=== PATIENT | male | born 1945 | race Caucasian/White ===

== ENCOUNTER 2016-05-09 13:15 | Inpatient (IN) ==
--- NOTE | 2016-05-08 21:18 | Discharge Summary ---
<Gretel Strong - Last Filed: 05/09/16 09:51> Date of Encounter: 05/09/16 - Discharge Diagnosis (1) Arthritis of right hip Priority: Primary Status: Acute (2) HTN (hypertension) Priority: Secondary Status: Chronic Qualifiers: Hypertension type: essential hypertension Qualified Code(s): I10 - Essential (primary) hypertension (3) Obesity Priority: Secondary Status: Chronic Qualifiers: Obesity type: unspecified obesity type Obesity severity: unspecified obesity severity Qualified Code(s): E66.9 - Obesity, unspecified - Discharge Medications Home Medications: Aspirin Enteric Coated [Aspirin EC] 325 mg PO DAILY #21 tablet. 05/08/16 [Rx] OxyCODONE Immed Rel [Roxicodone 5 MG] 5 - 10 mg PO Q6HR PRN #40 tablet 05/08/16 [Rx] Aspirin 81 mg PO DAILY 05/09/16 [History] Magnesium Oxide [Magnesium] 400 mg PO HS 05/09/16 [History] Multivitamin [Multi-Day Vitamins] 1 each PO DAILY 05/09/16 [History] Nebivolol HCl [Bystolic] 10 mg PO DAILY 05/09/16 [History] Potassium Chloride 20 meq PO BID 05/09/16 [History] Simvastatin [Zocor] 40 mg PO DAILY 05/09/16 [History] Spironolactone [Aldactone] 25 mg PO BID 05/09/16 [History] Allergies/Adverse Reactions: Allergies No Known Allergies Allergy (Verified 05/09/16 14:06) Primary care physician: Ariella Salguero MD - Patient Status Disposition: Home, Self-Care Condition: Good - Discharge Instructions Follow Up With: Louis Cole MD [Partnered Physician] - 06/07/16 9:30 am Gretel Strong PAC [Physician School Secretary] - 05/18/16 10:30 am Ariella Salguero MD [Primary Care Provider] - - Hospital Course Hospital course: Mr. Ring is a 70 year old male - Time Spent with Patient Total time spent providing and/or coordinating discharge services: <Louis Cole - Last Filed: 05/11/16 07:46> Date of Encounter: 05/11/16 Time of Encounter: 07:46 - Discharge Diagnosis (1) Arthritis of right hip Status: Acute (2) HTN (hypertension) Status: Chronic Qualifiers: Hypertension type: essential hypertension Qualified Code(s): I10 - Essential (primary) hypertension (3) Obesity Status: Chronic Qualifiers: Obesity type: unspecified obesity type Obesity severity: unspecified obesity severity Qualified Code(s): E66.9 - Obesity, unspecified Primary care physician: Ariella Salguero MD - Patient Status Functional capacity at discharge: uses cane/walker Overall status at discharge: patient is progressing back to baseline - Hospital Course Hospital course: Mr. Ring is a 70 year old male The patient had an uneventful postoperative course. They received antibiotics and physical therapy and were discharged in stable condition. There will follow -up in the office in 2 weeks. Aspirin DVT prophylaxis - Time Spent with Patient Total time spent providing and/or coordinating discharge services:
[2016-05-09] MEDS ORDERED: CeFAZolin Pre 2,000 MG/100 ML 2,000 MG/100 ML BAG IVPB ONE (13:38)
[2016-05-09] MEDS: Ringers Solution, Lactated 1,000 ML IVC SCH ×2 (13:56→17:57)
[2016-05-09] MEDS ORDERED: Famotidine 20 MG/2 ML VIAL IVP ONE (14:44)
--- NOTE | 2016-05-09 15:06 | Anesthesia Evaluation PreOp ---
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 05/08/16 [Rx] OxyCODONE Immed Rel [Roxicodone 5 MG] 5 - 10 mg PO Q6HR PRN #40 tablet 05/08/16 [Rx] Aspirin 81 mg PO DAILY 05/09/16 [History] Magnesium Oxide [Magnesium] 400 mg PO HS 05/09/16 [History] Multivitamin [Multi-Day Vitamins] 1 each PO DAILY 05/09/16 [History] Nebivolol HCl [Bystolic] 10 mg PO DAILY 05/09/16 [History] Potassium Chloride 20 meq PO BID 05/09/16 [History] Simvastatin [Zocor] 40 mg PO DAILY 05/09/16 [History] Spironolactone [Aldactone] 25 mg PO BID 05/09/16 [History] Allergies No Known Allergies Allergy (Verified 05/09/16 14:06) - Meds/Allergy Pre-op Review Medications Reviewed: Yes Allergies Reviewed: Yes Beta Blockers on Current Med List: Yes (Given Bystolic today 1400) Anesthesia Results - Labs Laboratory Tests 05/02/16 05/02/16 10:05 10:05 WBC 9.1 Hgb 15.7 Hct 47.0 Plt Count 129 L Sodium 140 Potassium 4.4 BUN 18 - Imaging EKG: report reviewed (SR frequent PVC) Anesthesia Exam O2 Sat Height 1.75 m Height 1.75 m Height 1.75 m Weight 109.769 kg Weight 109.769 kg Weight 109.769 kg O2 Sat by Pulse Oximetry 95 O2 Sat by Pulse Oximetry 95 Vital Signs Temp Pulse Resp BP Pulse Ox 97.3 F L 79 18 131/80 95 05/09/16 13:36 05/09/16 13:36 05/09/16 13:36 05/09/16 13:36 05/09/16 13:36 Height: 5'10 Weight: 242 lbs NPO (# of Hours): MN - HEENT Pupil (Motor): Pupils equal, EOMI Mallampati: II Teeth: Normal Oral Opening: Greater than 3 - BOOKKEEPING TEACHER LOC: Oriented BOOKKEEPING TEACHER Motor: Normal RUE, Normal LUE, Normal RLE, Normal LLE, Normal Face BOOKKEEPING TEACHER Sensory: Normal: RUE, LUE, RLE, LLE, Face - Cardiac Rhythm: Regular Murmur: None JVD: No Carotid Bruit: No - Pulmonary Breath Sounds: bilateral Clear Respiratory Effort: Symmetrical Anesthesia Assess/Plan ASA Score: 2 Modified [place] Scale for Level of Consciousness: Cooperative, oriented, and tranquil Anesthetic Plan: General Monitoring Plan: Standard Monitors Recovery Plan: PACU (Discussed GA, agrees to proceed)
[2016-05-09] MEDS ORDERED: *HR* Propofol 200 MG/20 ML VIAL IVP ONE (16:04)
[2016-05-09] MEDS ORDERED: *HR* FentaNYL (PF) 100 MCG/2 ML VIAL ONE (16:04)
[2016-05-09] MEDS ORDERED: Lidocaine -MPF 2% 2 ML VIAL ONE (16:04)
[2016-05-09] MEDS ORDERED: Dexamethasone 4 MG/ML VIAL ONE (16:04)
[2016-05-09] MEDS ORDERED: Ondansetron 4 MG/2 ML VIAL ONE (16:04)
[2016-05-09] MEDS ORDERED: *HR* Midazolam HCl 2 MG/2 ML VIAL ONE (16:04)
[2016-05-09] MEDS ORDERED: Lidocaine -MPF 4% 5 ML AMPUL ONE (16:05)
[2016-05-09] MEDS ORDERED: *HR* HYDROmorphone (PF) 1 MG/ML SYRINGE IVP PRN ×3 (16:10→20:26)
--- NOTE | 2016-05-09 17:13 | History & Physical Report ---
Date of Encounter: 05/09/16 Time of Encounter: 17:13 24 Hour HP Update - Instructions Instructions: If the History and Physical is less than 30 days old and was completed prior to A.M. admission and or procedure and has NOT been updated on calendar day of procedure please complete this update prior to performing procedure. - Update Patient reports changes in Medical Condition: No Changes in assessment/condition: No Changes in Medication: No Preop tests/diagnostics Reviewed: Yes Surgery Remains Indicated: Yes Consent for Planned Operative Procedure(s) Verified: Yes - Pre-Operative Checklist Preoperative Checklist Indicated: No Prophylactic Antibiotic Ordered: Yes Is VTE Prophylaxis Indicated?: Yes
[2016-05-09] MEDS ORDERED: *HR* Enoxaparin 30 MG/0.3 ML SYRINGE SQ SCH (18:00)
--- NOTE | 2016-05-09 18:19 | Orthopedic Operative Note ---
Date of procedure: 05/09/16 Pre-op diagnosis: Right hip arthritis Post-op diagnosis: same Procedure: Procedure: Right Total Hip Replacment Estimated blood loss: 200 cc Hardware: Biomet DM Cup: 62 G7 fin cup Femoral size 11 echo full profile lateralized stem Head: +9 head with Hilda Procedural Notes: Grade 4 arthritic changes femoral head acetabular socket Operative procedure: The patient was brought to the operating room and placed on the operating room table. After general anesthesia was administered the patient was placed in the lateral decubitus position with the operative leg up. All pressure points were padded appropriately and the head was stabilized in the neutral position. The operative extremity was prepped and draped in the sterile surgical fashion patient received IV antibiotic prior to skin incision. A standard posterior approach is made to the operative hip, the incision was made through the skin and subcutaneous tissue hemostasis was obtained with Bovie cautery. Using careful sharp dissection the fascia was identified and incised exposing the external rotators. The external rotators were released off the greater trochanter and tagged with #2 FiberWire suture. The capsule was T'd open and the hip was brought into internal rotation. Patient noted to have grade 4 arthritic changes femoral head. The femoral neck cut was made at the appropriate level. An anterior capsulotomy was performed for the anterior retractor. Soft tissues removed from the acetabulum. Patient noted to have grade 4 arthritic changes acetabulum. Acetabulum was first reamed medially, and then reamed in 15 degrees of anteversion and 45 degrees off the horizontal. It was reamed up to the appropriate size 62 The appropriate-sized 6-2 acetabular cup was impacted in place in 15 degrees of anteversion and 45 degrees off the horizontal. This had good fit and fixation. The hip was brought back in to internal rotation and prepared with the hot box checker followed by the canal finder followed by broaching process in 20 degrees anteversion. It was broached up to the appropriate size 11 The femoral implant was impacted in place in 20 degrees of anteversion. Trial reduction found the hip to be stable with a +9 head and Hilda. The trials were removed and the real implants were impacted in place. The hip was reduced, patient had apparent equal leg lengths. The hip had excellent stability with forward flexion to 90 degrees adduction of 30 degrees and internal rotation of 60 degrees. The hip had no shuck. The hips after 2 minutes with a Betadine saline solution. It was irrigated out with 2 L of pulse irrigation. The external rotators were reattached to drill holes in the greater trochanter. Fascia was closed with a running #2 PDS suture. The deep tissue was irrigated and closed deep with #1 PDS suture superficially with 0 PDS suture and skin was closed with Dermabond and skin sveta. The patient was placed in a sterile dressing and abduction pillow. The patient was extubated and transferred to the recovery room in stable condition. Anesthesia: GETA Surgeon: Louis Cole Condition: stable Disposition: PACU
[2016-05-09 19:38] LABS: Hematocrit 41.9 % (37.5-50.1); Hemoglobin 13.9 g/dL (12.9-16.9)
--- NOTE | 2016-05-09 20:01 | Anesthesia Evaluation Post Op ---
Date of Encounter: 05/09/16 Time of Encounter: 19:59 - Vital Signs Vital Signs: Vital Signs/O2 Sat, Most Current Temp Pulse Resp BP Pulse Ox 97.5 F L 69 16 123/89 97 05/09/16 19:44 05/09/16 19:54 05/09/16 19:54 05/09/16 19:54 05/09/16 19:54 - Lungs Lungs: Clear Ascult./Percussion - Airway Airway: Non-obstructed - Mental Status Mental Status: Alert & Oriented, Answers Appropriately - Pain Pain Scale: 4 - Nausea Vomiting Nausea Vomiting: Not Present - Hydration Hydration: NPO, Has not voided - Discharge PostOp Status: Transfer Patient to floor
[2016-05-09] MEDS ORDERED: Acetaminophen 325 MG TABLET PO PRN (20:26)
[2016-05-09] MEDS ORDERED: Sennosides 8.6 MG TABLET PO PRN (20:26)
[2016-05-09] MEDS ORDERED: Temazepam 15 MG CAPSULE PO PRN (20:26)
[2016-05-09] MEDS ORDERED: MOM Conc 10 ML UD.LIQ PO PRN (20:26)
[2016-05-09] MEDS ORDERED: Ringers Solution, Lactated 1,000 ML IVC SCH (20:26)
[2016-05-09] MEDS ORDERED: *HR* OxyCODONE Immed Rel 5 MG TABLET PO PRN (20:26)
[2016-05-09] MEDS ORDERED: Naloxone 0.4 MG/ML INJ IVP PRN (20:26)
[2016-05-09] MEDS ORDERED: Albuterol Neb 1.25 MG/3 ML VIAL IH ONE (20:26)
[2016-05-09] MEDS ORDERED: Ondansetron 4 MG/2 ML VIAL IVP PRN (20:26)
[2016-05-09] MEDS: Ascorbic Acid 500 MG TABLET PO SCH (20:49)
[2016-05-09] MEDS: Spironolactone 25 MG TABLET PO SCH (20:49)
[2016-05-09] MEDS: Magnesium Oxide 400 MG TABLET PO SCH (20:52)
[2016-05-09] MEDS: ceFAZolin 2,000 MG in D5% in Water 100 ML IVPB SCH (23:59)
[2016-05-10] MEDS: *HR* OxyCODONE Immed Rel 5 MG TABLET PO PRN ×2 (00:03→19:56)
[2016-05-10 06:03] LABS: Hematocrit 39.7 % (37.5-50.1); Hemoglobin 13.2 g/dL (12.9-16.9)
[2016-05-10] MEDS: *HR* Enoxaparin 30 MG/0.3 ML SYRINGE SQ SCH ×2 (06:13→17:35)
[2016-05-10 06:19] LABS: BUN/Creatinine Ratio 18 (6-26); Blood Urea Nitrogen 20 mg/dL (8-26); Calcium 8.8 mg/dL (8.6-10.8); Carbon Dioxide 20 mEq/L (19-29); Chloride 105 mEq/L (98-109); Glucose 217 mg/dL (70-99); Osmolality,Calculated 291 (280-300); Sodium 136 mEq/L (136-145); eGFR For African Americans > 60 (> 60); eGFR For Non-African Americans > 60 (> 60)
[2016-05-10 06:23] LABS: Potassium 4.9 mEq/L (3.5-4.5)
--- NOTE | 2016-05-10 06:41 | Orthopedics Progress Note ---
Date of Encounter: 05/10/16 Time of Encounter: 06:41 - Assessment and Plan (1) Arthritis of right hip Current Visit: Yes Status: Acute (2) HTN (hypertension) Current Visit: Yes Status: Chronic Qualifiers: Hypertension type: essential hypertension Qualified Code(s): I10 - Essential (primary) hypertension (3) Obesity Current Visit: Yes Status: Chronic Qualifiers: Obesity type: unspecified obesity type Obesity severity: unspecified obesity severity Qualified Code(s): E66.9 - Obesity, unspecified Subjective Interval history: Patient was seen this morning doing well without complaints. Afebrile vital signs stable. Operative extremity: Neurovascularly intact Dressing clean dry and intact Calves nontender Assessment and plan: Continue with postoperative care Hematocrit 39 Objective Vital signs: Vital Signs Temp Pulse Resp BP Pulse Ox 05/10/16 06:00 97.7 F 71 15 121/77 98 05/10/16 03:56 97.7 F 71 15 121/77 98 05/10/16 00:00 98.5 F 79 16 110/74 99 05/09/16 23:11 98.5 F 79 16 110/74 99 05/09/16 22:32 97 05/09/16 22:30 98.2 F 15 14 118/68 97 05/09/16 21:27 97.7 F 14 14 110/70 99 05/09/16 21:00 98.2 F 15 14 118/68 97 05/09/16 20:57 18 97 05/09/16 20:35 97.4 F L 16 15 113/72 96 05/09/16 20:10 97.4 F L 75 15 125/79 96 05/09/16 19:54 69 16 123/89 97 05/09/16 19:44 97.5 F L 69 16 134/74 97 05/09/16 19:34 67 16 143/73 97 05/09/16 19:24 63 16 140/76 97 05/09/16 19:14 97.3 F L 65 16 138/67 97 05/09/16 19:04 80 16 133/75 96 05/09/16 18:54 70 16 134/72 97 05/09/16 18:44 97.2 F L 73 18 127/95 98 05/09/16 14:02 97.3 F L 79 18 131/80 95 05/09/16 13:36 97.3 F L 79 18 131/80 95 Intake and Output 05/09/16 05/09/16 05/10/16 15:59 23:59 07:59 Intake Total 1100 / 1100 Output Total 200 / 200 100 / 100 Balance 900 / 900 -100 / -100 Intake: IV Fluids 1100 / 1100 Lactated Ringers 1,000 ML 1000 / 1000 @ 25 mls/hr IVC .Q24H [facility] Rx#:[id number] Ancef Premix 2,000 MG/100 100 / 100 ML 2,000 mg In 100 ml @ 200 mls/hr IVPB PREOP ONE Rx#:[id number] Output: Urine 100 / 100 Estimated Blood Loss 200 / 200 Other: Weight 109.769 kg - Labs CBC & BMP: 05/10/16 05:23 05/10/16 05:23 Labs: Abnormal lab results Potassium 4.9 mEq/L (3.5-4.5) H 05/10/16 05:23 Glucose 217 mg/dL (70-99) H 05/10/16 05:23 - VTE Documentation of Mechanical Device: Venous foot pump, device Consult Discharge Plan - Plan Referrals: Ariella Salguero MD [Primary Care Provider] -
[2016-05-10] MEDS: Ascorbic Acid 500 MG TABLET PO SCH ×2 (09:13→17:35)
[2016-05-10] MEDS: Spironolactone 25 MG TABLET PO SCH ×2 (09:13→19:56)
[2016-05-10] MEDS: Multivit/Ca/Min/Fe/FA 1 TAB TABLET PO SCH ×2 (09:13)
[2016-05-10] MEDS: Aspirin 81 MG TAB.CHEW PO SCH (09:13)
[2016-05-10] MEDS: ceFAZolin 2,000 MG in D5% in Water 100 ML IVPB SCH (09:14)
[2016-05-10] MEDS: Magnesium Oxide 400 MG TABLET PO SCH (19:56)
[2016-05-11] MEDS: *HR* Enoxaparin 30 MG/0.3 ML SYRINGE SQ SCH ×2 (06:08→17:00)
[2016-05-11 06:43] LABS: Hematocrit 34.4 % (37.5-50.1)
[2016-05-11 06:54] LABS: BUN/Creatinine Ratio 23 (6-26); Blood Urea Nitrogen 22 mg/dL (8-26); Carbon Dioxide 25 mEq/L (19-29); Chloride 103 mEq/L (98-109); Glucose 169 mg/dL (70-99); Osmolality,Calculated 289 (280-300); Potassium 4.4 mEq/L (3.5-4.5); Sodium 136 mEq/L (136-145); eGFR For African Americans > 60 (> 60); eGFR For Non-African Americans > 60 (> 60)
[2016-05-11 06:55] LABS: Hemoglobin 11.4 g/dL (12.9-16.9)
--- NOTE | 2016-05-11 07:47 | Orthopedics Progress Note ---
Date of Encounter: 05/11/16 Time of Encounter: 07:46 - Assessment and Plan (1) Arthritis of right hip Current Visit: Yes Status: Acute (2) HTN (hypertension) Current Visit: Yes Status: Chronic Qualifiers: Hypertension type: essential hypertension Qualified Code(s): I10 - Essential (primary) hypertension (3) Obesity Current Visit: Yes Status: Chronic Qualifiers: Obesity type: unspecified obesity type Obesity severity: unspecified obesity severity Qualified Code(s): E66.9 - Obesity, unspecified Subjective Interval history: Patient was seen this morning doing well without complaints. Afebrile vital signs stable. Operative extremity: Neurovascularly intact Dressing clean dry and intact Calves nontender Assessment and plan: Continue with postoperative care Hematocrit 34 discharged today Objective Vital signs: Vital Signs Temp Pulse Resp BP Pulse Ox 05/11/16 07:07 98.1 F 84 16 111/66 94 L 05/11/16 01:47 98.8 F 82 16 125/69 96 05/10/16 21:52 98.6 F 79 15 124/68 94 L 05/10/16 16:14 98.3 F 83 18 128/74 05/10/16 13:00 86 16 114/68 94 L 05/10/16 11:02 98.1 F 86 16 114/68 94 L Intake and Output 05/10/16 05/10/16 05/11/16 15:59 23:59 07:59 Intake Total 340 / 340 Output Total 300 / 300 1375 / 1375 600 / 600 Balance 40 / 40 -1375 / -1375 -600 / -600 Intake: IV Fluids 100 / 100 Ancef 2,000 MG In 100 / 100 Dextrose 5% 100 ML @ 200 mls/hr IVPB Q8HR [facility] Rx#: [id number] Oral 240 / 240 Output: Urine 300 / 300 1375 / 1375 600 / 600 Other: Meal Lunch Dinner Percent of Meal Consumed 90% 75% # Voids 1 - Labs CBC & BMP: 05/11/16 06:29 05/11/16 06:29 Labs: Abnormal lab results Hgb 11.4 g/dL (12.9-16.9) L D 05/11/16 06:29 Hct 34.4 % (37.5-50.1) L 05/11/16 06:29 Glucose 169 mg/dL (70-99) H 05/11/16 06:29 - VTE Documentation of Mechanical Device: Venous foot pump, device Consult Discharge Plan - Plan Referrals: Louis Cole MD [Partnered Physician] - 06/07/16 9:30 am Gretel Strong, PAC [Physician Creative Services Writer] - 05/18/16 10:30 am Ariella Salguero MD [Primary Care Provider] -
[2016-05-11] MEDS: Multivit/Ca/Min/Fe/FA 1 TAB TABLET PO SCH ×2 (07:53)
[2016-05-11] MEDS: Ascorbic Acid 500 MG TABLET PO SCH ×2 (07:53→17:00)
[2016-05-11] MEDS: Aspirin 81 MG TAB.CHEW PO SCH (07:54)
[2016-05-11] MEDS: Spironolactone 25 MG TABLET PO SCH ×2 (07:54→20:23)
[2016-05-11] MEDS: *HR* OxyCODONE Immed Rel 5 MG TABLET PO PRN (11:56)
[2016-05-11] MEDS: Magnesium Oxide 400 MG TABLET PO SCH (20:23)
[2016-05-12] MEDS: *HR* OxyCODONE Immed Rel 5 MG TABLET PO PRN ×2 (02:07→08:57)
[2016-05-12] MEDS: *HR* Enoxaparin 30 MG/0.3 ML SYRINGE SQ SCH (05:31)
--- NOTE | 2016-05-12 08:24 | Orthopedics Progress Note ---
Date of Encounter: 05/12/16 Time of Encounter: 08:23 - Assessment and Plan (1) Arthritis of right hip Current Visit: Yes Status: Acute (2) HTN (hypertension) Current Visit: Yes Status: Chronic Qualifiers: Hypertension type: essential hypertension Qualified Code(s): I10 - Essential (primary) hypertension (3) Obesity Current Visit: Yes Status: Chronic Qualifiers: Obesity type: unspecified obesity type Obesity severity: unspecified obesity severity Qualified Code(s): E66.9 - Obesity, unspecified Subjective Interval history: Patient was seen this morning doing well without complaints. Afebrile vital signs stable. Operative extremity: Neurovascularly intact Dressing clean dry and intact Calves nontender Assessment and plan: Continue with postoperative care discharged today Objective Vital signs: Vital Signs Temp Pulse Resp BP Pulse Ox 05/12/16 07:29 97.2 F L 80 16 136/71 94 L 05/11/16 23:57 98.6 F 05/11/16 23:38 84 18 142/76 94 L 05/11/16 19:26 98.6 F 84 18 144/65 96 05/11/16 15:44 98.5 F 77 18 118/66 98 05/11/16 11:02 98.1 F 86 16 129/71 93 L Intake and Output 05/11/16 05/12/16 05/12/16 23:59 07:59 15:59 Intake Total 1060 / 1060 220 / 220 Output Total 300 / 300 200 / 200 Balance 760 / 760 20 / 20 Intake: Oral 1060 / 1060 220 / 220 Output: Urine 300 / 300 200 / 200 Other: Meal Dinner Percent of Meal Consumed 80% # Voids 1 - Labs CBC & BMP: 05/12/16 07:56 05/11/16 06:29 Labs: Abnormal lab results Hgb 11.0 g/dL (12.9-16.9) L 05/12/16 07:56 Hct 32.0 % (37.5-50.1) L 05/12/16 07:56 Glucose 169 mg/dL (70-99) H 05/11/16 06:29 - VTE Documentation of Mechanical Device: Venous foot pump, device Consult Discharge Plan - Plan Referrals: Louis Cole MD [Partnered Physician] - 06/07/16 9:30 am Mulvany,Gretel L, PAC [Physician Fruit Preserver] - 05/18/16 10:30 am Ariella Salguero MD [Primary Care Provider] -
[2016-05-12] MEDS: Aspirin 81 MG TAB.CHEW PO SCH (08:57)
[2016-05-12] MEDS: Multivit/Ca/Min/Fe/FA 1 TAB TABLET PO SCH ×2 (08:57→08:59)
[2016-05-12] MEDS: Ascorbic Acid 500 MG TABLET PO SCH (08:57)
[2016-05-12] MEDS: Spironolactone 25 MG TABLET PO SCH (08:57)
[2016-05-12 11:11] VITALS: BP 132/72
== END 2016-05-12 12:40 | DRG 470 ==
LOC: SAMDAY 13:15 → 3NENU 20:17
PROVIDERS: ADMIT Orthopaedic Surgery; ATTEND Orthopaedic Surgery